=== PATIENT | female | born 1980 | race Two or more races ===

== ENCOUNTER 2018-11-11 05:26 | Inpatient (IN) | payer MEDICAID ==
[2018-11-11] MEDS ORDERED: Sodium Chloride 0.9% 10 ML SDV IV PRN (05:42)
[2018-11-11] MEDS ORDERED: ceFAZolin 2 GM in Premix Bag 1 BAG IV ONE (05:42)
[2018-11-11] MEDS ORDERED: Sodium Chloride 0.9% 2.5 ML Syringe FLUSH PRN (05:42)
[2018-11-11] MEDS ORDERED: Sodium Chloride 0.9% 10 ML Syringe FLUSH PRN (05:42)
[2018-11-11] MEDS ORDERED: Citric Acid/Sodium Citrate Solution 30 ML Cup PO ONE (05:42)
[2018-11-11] MEDS ORDERED: Oxytocin/0.9 % Sodium Chloride 30 UNIT/500 ML BAG IV SCH (05:45)
[2018-11-11] MEDS: Lactated Ringers 1,000 ML IV SCH ×2 (06:05→07:48)
[2018-11-11] MEDS ORDERED: diphenhydrAMINE 50 MG/ML SDV IVPUSH PRN ×2 (07:14→09:02)
[2018-11-11] MEDS ORDERED: Naloxone 0.4 MG/ML Syringe IVPUSH PRN (07:14)
[2018-11-11] MEDS ORDERED: Nalbuphine 10 MG/1 ML Vial IVPUSH PRN (07:14)
[2018-11-11] MEDS ORDERED: EPINEPHrine 1 MG/ML SDV ONE (07:36)
[2018-11-11] MEDS ORDERED: Morphine PF 10 MG/10 ML SDV ONE (07:36)
[2018-11-11] MEDS ORDERED: Scopolamine 1.5 MG Transdermal Patch ONE (07:36)
[2018-11-11] MEDS ORDERED: ceFAZolin 1 GM Vial ONE (07:36)
--- NOTE | 2018-11-11 07:43 | PCM.PREANE ---
Preanesthetic Assessment - Anesthesia/Transfusion/Family Hx Type of Anesthesia Reaction: Excessive Nausea/Vomiting Family History of Anesthesia Reaction: No Transfusion History: No Prior Transfusion(s) - Review of Systems General: No Symptoms Pulmonary: Shortness of Breath (occasionally, does not interfere with quality of life) Cardiovascular: No Symptoms Gastrointestinal: No Symptoms Neurological: No Symptoms Other: Reports: None - Physical Assessment NPO Status Time: 07:41 (bicitra) Height: 1.68 m Weight: 97.069 kg ASA Class: 2 Mental Status: Alert & Oriented x3 Airway Class: Mallampati = 2 Dentition: Reports: Normal Dentition Thyro-Mental Finger Breadths: 3 Mouth Opening Finger Breadths: 3 ROM/Head Extension: Full Lungs: Clear to Auscultation, Normal Respiratory Effort Cardiovascular: Regular Rate, Regular Rhythm - Lab Values: Laboratory Last Values WBC 9.92 K/uL (4.0-11.0) 11/11/18 06:05 RBC 4.65 M/uL (4.30-5.90) 11/11/18 06:05 Hgb 12.6 g/dL (12.0-16.0) 11/11/18 06:05 Hct 37.9 % (36.0-46.0) 11/11/18 06:05 MCV 81.5 fL (80.0-98.0) 11/11/18 06:05 MCH 27.1 pg (27.0-32.0) 11/11/18 06:05 MCHC 33.2 g/dL (31.0-37.0) 11/11/18 06:05 RDW Std Deviation 42.8 fl (28.0-62.0) 11/11/18 06:05 RDW Coeff of Mildred 14 % (11.0-15.0) 11/11/18 06:05 Plt Count 169 K/uL (150-400) 11/11/18 06:05 MPV 13.20 fL (7.40-12.00) H 11/11/18 06:05 Nucleated RBC % 0.0 /100WBC 11/11/18 06:05 Nucleated RBCs # 0 K/uL 11/11/18 06:05 Blood Type A POSITIVE 11/11/18 06:05 Antibody Screen NEGATIVE 11/11/18 06:05 - Allergies Allergies/Adverse Reactions: Allergies Allergy/AdvReac Type Severity Reaction Status Date / Time No Known Allergies Allergy Verified 11/05/18 07:52 - Anesthesia Plan Pre-Op Medication Ordered: Antacids (bicitra), Other (scopolamine) - Acknowledgements Anesthesia Type Planned: Spinal Pt an Appropriate Candidate for the Planned Anesthesia: Yes Alternatives and Risks of Anesthesia Discussed w Pt/Guardian: Yes Pt/Guardian Understands and Agrees with Anesthesia Plan: Yes PreAnesthesia Questionnaire HEENT History: Reports: Other (See Below) Other HEENT History: wears glasses Cardiovascular History: Reports: None Respiratory History: Reports: SOB (see review of systems comments) Gastrointestinal History: Reports: Other (See Below) Other Gastrointestinal History: occasional heartburn during Genitourinary History: Reports: None ETL TESTER History: Reports: Musculoskeletal History: Reports: Back Pain, Chronic (sees a chiropracter, preop pain score "3-4/10") Neurological History: Reports: None Psychiatric History: Reports: Anxiety Endocrine/Metabolic History: Reports: Obesity/BMI 30+ Hematologic History: Reports: None Immunologic History: Reports: None Oncologic (Cancer) History: Reports: None Dermatologic History: Reports: None - Past Surgical History Head Surgeries/Procedures: Reports: None HEENT Surgical History: Reports: None Cardiovascular Surgical History: Reports: None Respiratory Surgical History: Reports: None GI Surgical History: Reports: None Female Surgical History: Reports: Section Other Female Surgeries/Procedures: c/section x3 Endocrine Surgical History: Reports: None Neurological Surgical History: Reports: None Musculoskeletal Surgical History: Reports: None Oncologic Surgical History: Reports: None Dermatological Surgical History: Reports: None - SUBSTANCE USE Smoking Status *Q: Former Smoker Days Per Week of Alcohol Use: 0 Recreational Drug Use History: No - HOME MEDS Home Medications: Home Meds PNV95/Ferrous Fumarate/FA [ Tablet] 1 tab PO DAILY 04/20/16 [History] Calcium Carb & Citrate/Vit D3 [Calcium + D3 ER Tablet] 1 tab PO DAILY 11/05/18 [ History] Lactobacillus Acidophilus [Probiotic] 1 tab PO DAILY 11/05/18 [History] - CURRENT (IN HOUSE) MEDS Current Meds: Current Medications Diphenhydramine HCl (Benadryl) 25 mg IVPUSH Q4H PRN PRN Reason: Itching Stop: 11/12/18 07:15 Lactated Ringer's (Ringers, Lactated) 1,000 mls @ 500 mls/hr IV BOLUS [facility] Last Admin: 11/11/18 06:05 Dose: 500 mls/hr Oxytocin/Sodium Chloride (Oxytocin 30 Unit/500 Ml-Ns) 30 unit in 500 mls @ 250 mls/hr IV TITRATE [facility] Nalbuphine HCl (Nubain) 2.5 mg IVPUSH Q3H PRN PRN Reason: Pruritis Stop: 11/12/18 07:15 Naloxone HCl (Narcan) 0.1 mg IVPUSH ONETIME PRN PRN Reason: Respiratory Depression Stop: 11/12/18 07:15 Sodium Chloride (Saline Flush) 10 ml FLUSH ASDIRECTED PRN PRN Reason: Keep Vein Open Sodium Chloride (Saline Flush) 2.5 ml FLUSH ASDIRECTED PRN PRN Reason: Keep Vein Open Sodium Chloride (Normal Saline) 10 ml IV ASDIRECTED PRN PRN Reason: IV Use Discontinued Medications Cefazolin Sodium (Ancef) Confirm Administered Dose 2 gm .ROUTE .STK-MED ONE Stop: 11/11/18 07:37 Citric Acid/Sodium Citrate (Bicitra Solution) 30 ml PO ONETIME ONE Stop: 11/11/18 05:43 Last Admin: 11/11/18 07:39 Dose: 30 ml Epinephrine HCl (Adrenalin) Confirm Administered Dose 1 mg .ROUTE .STK-MED ONE Stop: 11/11/18 07:37 Cefazolin Sodium/Dextrose 2 gm (/ Premix) 50 mls @ 100 mls/hr IV ONETIME ONE Stop: 11/11/18 06:11 Morphine Sulfate (Duramorph Pf) Confirm Administered Dose 10 mg .ROUTE .STK-MED ONE Stop: 11/11/18 07:37 Scopolamine (Transderm-Scop) Confirm Administered Dose 1.5 mg .ROUTE .STK-MED ONE Stop: 11/11/18 07:37
[2018-11-11] MEDS ORDERED: Oxytocin 10 Units/1 ML SDV ONE (08:22)
[2018-11-11] MEDS ORDERED: ePHEDrine 50 MG/ML SDV ONE (08:22)
[2018-11-11] MEDS ORDERED: Ketorolac 30 MG/ML SDV ONE (08:38)
[2018-11-11] MEDS ORDERED: Octyl 2-Cyanoacrylate 1 Tube ONE (08:49)
[2018-11-11] MEDS ORDERED: Ondansetron 4 MG/2 ML SDV ONE (08:49)
[2018-11-11] MEDS ORDERED: Bisacodyl 10 MG Supp RECTAL PRN (09:02)
[2018-11-11] MEDS ORDERED: Ondansetron 4 MG/2 ML SDV IVPUSH PRN (09:02)
[2018-11-11] MEDS ORDERED: Lanolin 100% Cream 7 GM Tube TOP PRN (09:02)
[2018-11-11] MEDS ORDERED: Acetaminophen/oxyCODONE 325-5 MG Tab PO PRN (09:02)
[2018-11-11] MEDS ORDERED: Aluminum Hydroxide/Magnesium Hydroxide/Simethicone Susp 30 ML Cup PO PRN (09:02)
--- NOTE | 2018-11-11 09:12 | PCM.OPNOTE ---
- General Post-Op/Procedure Note Date of Surgery/Procedure: 11/11/18 Operative Procedure(s): Repeat LTCS Findings: Viable female APGARs 9, 10 weight 7 lb 11 oz. Delivery intact placenta with 3 V cord. Thin lower uterine segment. Dense abdominal wall adhesions Pre Op Diagnosis: 39 week IUP. Previous c section, desires repeat Post-Op Diagnosis: Same Anesthesia Technique: Spinal Primary Surgeon: Nga Zaman Humid System Operator: Kathleen Peña Fluid Replacement, Intraop: 1,200 EBL in mLs: 900 Complications: none known Condition: Stable Free Text/Narrative:: Intake & Output 11/10/18 11/11/18 11/11/18 22:59 06:59 14:59 Intake Total 1000 Balance 1000 Dictation [id number]
[2018-11-11] MEDS ORDERED: Lactated Ringers 1,000 ML IV SCH (09:15)
--- NOTE | 2018-11-11 11:40 | PCM.POSTAN ---
POST ANESTHESIA ASSESSMENT - MENTAL STATUS Mental Status: Alert, Oriented - RESPIRATORY Respiratory Status: Respiratory Rate WNL, Airway Patent, O2 Saturation Stable - CARDIOVASCULAR CV Status: Pulse Rate WNL, Blood Pressure Stable - GASTROINTESTINAL GI Status: No Symptoms - POST OP HYDRATION Hydration Status: Adequate & Stable
--- NOTE | 2018-11-11 13:51 | OR ---
SURGEON: Nga Zaman M.D. DATE OF PROCEDURE: 11/11/2018 PREOPERATIVE DIAGNOSES: 1. 39 weeks' intrauterine . 2. Previous section, desires repeat. POSTOPERATIVE DIAGNOSES: 1. 39 weeks' intrauterine . 2. Previous section, desires repeat. PROCEDURE: Repeat low-transverse section. PRIMARY SURGEON: Nga Zaman MD. FUR SCRAPER: Kathleen Peña MD. ANESTHESIA: Spinal. ESTIMATED BLOOD LOSS: 900 mL. FLUIDS: 1200 mL of crystalloid. COMPLICATIONS: None known. FINDINGS: Viable female. scores 9 at 1 minute, 10 at 5 minutes. Weight of 7 pounds 11 ounces. Delivery of intact placenta, 3-vessel cord. A thin lower uterine segment noted. Dense abdominal wall adhesions. DISPOSITION: The patient to PACU, infant to nursery, stable. PROCEDURE DETAILS: Susan is a 38-year-old G5, P4, at 39 weeks' gestational age today, who presents for scheduled repeat delivery. Risks of the procedure have been discussed with her. Proper consent obtain. Pictures were taken to explain to her that this is going to be her 5th delivery and her last delivery by virtue of op note had quite a lot of adhesions, and we should expect the same today. Therefore, the procedure time may take longer than usual and the risk for potential injury to surrounding organs is higher. She voiced her understanding. Risks of the procedure have been discussed with her once again and proper consent obtained. The patient was taken to the operating room where she underwent spinal anesthetic, was then placed in the dorsal supine position with leftward tilt. SCDs to lower extremities. Ceballos to gravity. Was prepped and draped in usual sterile fashion. A time-out was performed. After being prepped and draped in usual sterile fashion, anesthesia was tested, found to be adequate. Previous Pfannenstiel scar was now excised. Subcutaneous tissue was incised down the level of the rectus fascia, which was incised in midline and lateralized on either side sharply. The rectus fascia was quite dense from previous scarring without a lot of mobility. The superior aspect of the fascia was now grasped with Toni clamps on either side and dissected sharply and bluntly away from underlying muscle. Similar aspect was performed with the inferior aspect of the fascia. Rectus muscles now gently in midline sharply. Peritoneum was gently dissected bluntly and tented up with hemostats and entered sharply with Metzenbaum scissors. The rectus muscles and peritoneum were now lateralized bluntly. A region of tightness along the right lateral aspect was further dissected with Christianson scissors in order to allow more mobility. At this juncture, uterovesical adhesions were noted. However, I am able to find a plane in order to enter the abdominal cavity. Therefore, position and uterine position palpated and self-retaining retractor was able to be gently placed. Uterovesical adhesions were now lysed sharply and a bladder flap was created. Bladder was mobilized away from lower uterine segment. The lower uterine segment was very thin. The peritoneal window identified. Therefore, a low transverse hysterotomy was performed in this region and entered with blunt end of scalpel. Hysterotomy was lateralized bluntly. Amniotomy was performed. Clear fluid was returned. Infant's head was flexed. Fundal pressure was applied. The head does deliver, but the region was quite tight creating a lot of fundal pressure in order to allow delivery of the head and shoulders, but this was able to be performed. The 's oropharynx and nares bulb suctioned. Cord was clamped x2 and cut. was handed off to attending nursing staff. Cord arterial, cord venous, cord blood sampling obtained. The placenta was now delivered. Uterine cavity was cleared of all clot and debris. Hysterotomy was repaired using 0 Vicryl in continuous running locked fashion followed by a re-imbricating layer. Areas of serosal oozing were now cauterized. The pelvis was now copiously irrigated, suction dried. Hysterotomy was again inspected and found to be hemostatic. Self-retaining retractor now gently removed. Bladder blade and Rich were now placed. The hysterotomy was again inspected and overall found to be hemostatic. The bladder blade and Rich were now removed rectus fascia. The rectus muscle and peritoneum were now reapproximated using 0 Vicryl with inverted mattress suture technique. Anterior aspect of the muscle, posterior aspect of the fascia closely inspected, any areas of oozing were cauterized. The rectus fascia was reapproximated using 0 Vicryl in continuous running fashion beginning laterally on either side and meeting in the midline. Subcutaneous tissue was well irrigated and suction dried, any areas of oozing were cauterized. There was an area of arterial bleeding along the left lateral aspect, which was grasped with hemostats on either side and cauterized. Hemostasis appeared evident. Region was once again copiously irrigated. Deeper subcutaneous tissue was reapproximated with 3-0 plain gut in a continuous running fashion. The skin edges were reapproximated using 3-0 Vicryl on a Blaine needle in subcuticular fashion followed by Dermabond. Uterus was vigorously massaged and remained firm. Sponge, instrument, and needle count was correct x2. The patient has tolerated the procedure well overall, and she will go to PACU in stable condition, infant to nursery. GERALDO / CHANTEL /[id number]
[2018-11-11] MEDS: Simethicone 80 MG Tab.Chew PO SCH ×2 (14:22→18:06)
[2018-11-11] MEDS: Ketorolac 30 MG/ML SDV IVPUSH SCH ×3 (14:23→21:30)
[2018-11-11] MEDS: Docusate Sodium 100 MG Cap PO SCH (21:30)
[2018-11-12] MEDS: Ketorolac 30 MG/ML SDV IVPUSH SCH ×2 (03:39→09:34)
[2018-11-12] MEDS: Simethicone 80 MG Tab.Chew PO SCH ×4 (06:27→19:38)
--- NOTE | 2018-11-12 06:33 | PCM48HPAN ---
Post Anesthesia Note - EVALUATION WITHIN 48HRS OF ANESTHETIC Vital Signs in Normal Range: Yes Patient Participated in Evaluation: Yes Respiratory Function Stable: Yes Airway Patent: Yes Cardiovascular Function Stable: Yes Hydration Status Stable: Yes Pain Control Satisfactory: Yes Nausea and Vomiting Control Satisfactory: Yes Mental Status Recovered: Yes Resp Rate: 14 - COMMENTS/OBSERVATIONS Free Text/Narrative:: The patient has no complaints at this time, and she would like to discontinue the scopolamine patch. The scopolamine patch can be discontinued. There were no apparent anesthetic complications.
[2018-11-12] MEDS: Docusate Sodium 100 MG Cap PO SCH (09:33)
[2018-11-12] MEDS: Acetaminophen/oxyCODONE 325-5 MG Tab PO PRN ×3 (12:12→22:55)
--- NOTE | 2018-11-12 13:02 | PCM.PNPP ---
- General Info Date of Service: 11/12/18 Functional Status: Reports: Pain Controlled, Tolerating Diet, Ambulating, Urinating - Review of Systems General: Reports: Fatigue. Denies: Fever, Weakness Pulmonary: Denies: Shortness of Breath Cardiovascular: Denies: Chest Pain, Palpitations, Lightheadedness Gastrointestinal: Reports: Abdominal Pain (incisional pain, controlled overall) . Denies: Nausea, Vomiting Genitourinary: Denies: Flank Pain Skin: Reports: No Symptoms Neurological: Reports: No Symptoms Psychiatric: Reports: No Symptoms - General Info Date of Service: 11/12/18 - Patient Data Vital Signs - Most Recent: Last Vital Signs Temp 36.2 C 11/12/18 07:20 Pulse 67 11/12/18 07:20 Resp 18 11/12/18 07:20 BP 118/59 L 11/12/18 07:20 Pulse Ox 98 11/12/18 07:20 Weight - Most Recent: 97.069 kg I&O - Last 24 Hours: Intake & Output 11/11/18 11/12/18 11/12/18 22:59 06:59 14:59 Intake Total 700 Output Total 1100 2900 Balance -400 -2900 Lab Results - Last 24 Hours: Laboratory Results - last 24 hr 11/12/18 Range/Units 05:40 Hgb 11.7 L (12.0-16.0) g/dL Hct 35.8 L (36.0-46.0) % Med Orders - Current: Current Medications Al Hydroxide/Mg Hydroxide (Mag-Al Plus) 30 ml PO Q8H PRN PRN Reason: Heartburn Bisacodyl (Dulcolax) 10 mg RECTAL ONETIME PRN PRN Reason: Constipation Diphenhydramine HCl (Benadryl) 25 mg IVPUSH Q6H PRN PRN Reason: Itching or Nausea Docusate Sodium (Colace) 100 mg PO BID [facility] Last Admin: 11/12/18 09:33 Dose: 100 mg Emollient Ointment (Lansinoh Hpa) 0 gm TOP ASDIRECTED PRN PRN Reason: Sore Nipples Last Admin: 11/11/18 14:30 Dose: 1 tube Lactated Ringer's (Ringers, Lactated) 1,000 mls @ 500 mls/hr IV BOLUS ETELVINA Last Admin: 11/11/18 07:48 Dose: 500 mls/hr Oxytocin/Sodium Chloride (Oxytocin 30 Unit/500 Ml-Ns) 30 unit in 500 mls @ 250 mls/hr IV TITRATE [facility] Lactated Ringer's (Ringers, Lactated) 1,000 mls @ 125 mls/hr IV ASDIRECTED [facility] Ibuprofen (Motrin) 800 mg PO Q8H PRN PRN Reason: mild pain or fever Ondansetron HCl (Zofran) 4 mg IVPUSH Q4H PRN PRN Reason: Nausea/Vomiting Oxycodone/Acetaminophen (Percocet 325-5 Mg) 1 tab PO Q4H PRN PRN Reason: Pain (moderate 4-6) Oxycodone/Acetaminophen (Percocet 325-5 Mg) 2 tab PO Q4H PRN PRN Reason: Pain (moderate 4-6) Last Admin: 11/12/18 12:12 Dose: 2 tab Simethicone (Simethicone) 160 mg PO QID [facility] Last Admin: 11/12/18 12:13 Dose: 160 mg Sodium Chloride (Saline Flush) 10 ml FLUSH ASDIRECTED PRN PRN Reason: Keep Vein Open Sodium Chloride (Saline Flush) 2.5 ml FLUSH ASDIRECTED PRN PRN Reason: Keep Vein Open Sodium Chloride (Normal Saline) 10 ml IV ASDIRECTED PRN PRN Reason: IV Use Discontinued Medications Cefazolin Sodium (Ancef) Confirm Administered Dose 2 gm .ROUTE .STK-MED ONE Stop: 11/11/18 07:37 Citric Acid/Sodium Citrate (Bicitra Solution) 30 ml PO ONETIME ONE Stop: 11/11/18 05:43 Last Admin: 11/11/18 07:39 Dose: 30 ml Diphenhydramine HCl (Benadryl) 25 mg IVPUSH Q4H PRN PRN Reason: Itching Stop: 11/12/18 07:15 Ephedrine Sulfate (Ephedrine Sulfate) Confirm Administered Dose 50 mg .ROUTE .STK-MED ONE Stop: 11/11/18 08:23 Epinephrine HCl (Adrenalin) Confirm Administered Dose 1 mg .ROUTE .STK-MED ONE Stop: 11/11/18 07:37 Cefazolin Sodium/Dextrose 2 gm (/ Premix) 50 mls @ 100 mls/hr IV ONETIME ONE Stop: 11/11/18 06:11 Ketorolac Tromethamine (Toradol) Confirm Administered Dose 30 mg .ROUTE .STK- MED ONE Stop: 11/11/18 08:39 Ketorolac Tromethamine (Toradol) 30 mg IVPUSH Q6H [facility] Stop: 11/12/18 09:16 Last Admin: 11/12/18 09:34 Dose: 30 mg Morphine Sulfate (Duramorph Pf) Confirm Administered Dose 10 mg .ROUTE .STK-MED ONE Stop: 11/11/18 07:37 Nalbuphine HCl (Nubain) 2.5 mg IVPUSH Q3H PRN PRN Reason: Pruritis Stop: 11/12/18 07:15 Last Admin: 11/11/18 10:19 Dose: 2.5 mg Naloxone HCl (Narcan) 0.1 mg IVPUSH ONETIME PRN PRN Reason: Respiratory Depression Stop: 11/12/18 07:15 Octyl Cyanoacrylate (Dermabond Advance) Confirm Administered Dose 1 applic .ROUTE .STK-MED ONE Stop: 11/11/18 08:50 Ondansetron HCl (Zofran) Confirm Administered Dose 4 mg .ROUTE .STK-MED ONE Stop: 11/11/18 08:50 Oxytocin (Pitocin) Confirm Administered Dose 20 unit .ROUTE .STK-MED ONE Stop: 11/11/18 08:23 Scopolamine (Transderm-Scop) Confirm Administered Dose 1.5 mg .ROUTE .STK-MED ONE Stop: 11/11/18 07:37 - Interaction Support Person: Significant Other - Recovery Exam Fundal Tone: Firm Fundal Level: 1 Fingerbreadths Below Umbilicus Fundal Placement: Midline Lochia Amount: Scant Lochia Color: Rubra/Red Perineum Description: Intact, Minimal Bruising/Swelling Episiotomy/Laceration: None Bladder Status: Voiding Urinary Elimination: Voided - Exam General: Alert, Oriented Lungs: Normal Respiratory Effort Cardiovascular: Regular Rate, Regular Rhythm GI/Abdominal Exam: Normal Bowel Sounds, Soft Extremities: Pedal Edema (trace). No: Nichole's Sign Skin: Warm, Dry, Intact Wound/Incisions: No Drainage. No: Erythema Neurological: No New Focal Deficit Psy/Mental Status: Alert, Normal Affect, Normal Mood - Problem List & Annotations (1) delivery delivered SNOMED Code(s): 766288729 Code(s): O82 - ENCOUNTER FOR DELIVERY WITHOUT INDICATION Status: Acute Current Visit: No - Problem List Review Problem List Initiated/Reviewed/Updated: Yes - My Orders Last 24 Hours: My Active Orders 11/11/18 21:00 Docusate Sodium [Colace] 100 mg PO BID 11/11/18 Dinner Regular Diet [DIET] - Assessment Assessment:: POD 1 status post repeat c section - Plan Plan:: Continue postoperative cares.
[2018-11-13] MEDS: Docusate Sodium 100 MG Cap PO SCH ×2 (00:03→08:06)
[2018-11-13] MEDS: Simethicone 80 MG Tab.Chew PO SCH ×3 (00:03→08:04)
[2018-11-13] MEDS: Ibuprofen 800 MG Tab PO PRN ×2 (00:08→08:07)
[2018-11-13] MEDS: Acetaminophen/oxyCODONE 325-5 MG Tab PO PRN ×2 (06:21→12:52)
[2018-11-13 07:56] VITALS: BP 124/71
--- NOTE | 2018-11-13 08:56 | PCM.PNPP ---
- General Info Date of Service: 11/13/18 Functional Status: Reports: Pain Controlled, Tolerating Diet, Ambulating, Urinating - Review of Systems General: Reports: Fatigue. Denies: Fever, Weakness Pulmonary: Denies: Shortness of Breath Cardiovascular: Denies: Chest Pain, Palpitations, Lightheadedness Gastrointestinal: Reports: Abdominal Pain (incisional, pain meds help control). Denies: Nausea, Vomiting Genitourinary: Denies: Flank Pain Musculoskeletal: Reports: No Symptoms Skin: Reports: No Symptoms Neurological: Reports: No Symptoms Psychiatric: Reports: No Symptoms - General Info Date of Service: 11/13/18 - Patient Data Vital Signs - Most Recent: Last Vital Signs Temp 36.5 C 11/13/18 07:25 Pulse 71 11/13/18 07:25 Resp 18 11/13/18 07:25 BP 124/71 11/13/18 07:25 Pulse Ox 96 11/13/18 07:25 Weight - Most Recent: 97.069 kg Med Orders - Current: Current Medications Al Hydroxide/Mg Hydroxide (Mag-Al Plus) 30 ml PO Q8H PRN PRN Reason: Heartburn Bisacodyl (Dulcolax) 10 mg RECTAL ONETIME PRN PRN Reason: Constipation Diphenhydramine HCl (Benadryl) 25 mg IVPUSH Q6H PRN PRN Reason: Itching or Nausea Docusate Sodium (Colace) 100 mg PO BID [facility] Last Admin: 11/13/18 08:06 Dose: 100 mg Emollient Ointment (Lansinoh Hpa) 0 gm TOP ASDIRECTED PRN PRN Reason: Sore Nipples Last Admin: 11/11/18 14:30 Dose: 1 tube Lactated Ringer's (Ringers, Lactated) 1,000 mls @ 500 mls/hr IV BOLUS [facility] Last Admin: 11/11/18 07:48 Dose: 500 mls/hr Oxytocin/Sodium Chloride (Oxytocin 30 Unit/500 Ml-Ns) 30 unit in 500 mls @ 250 mls/hr IV TITRATE [facility] Lactated Ringer's (Ringers, Lactated) 1,000 mls @ 125 mls/hr IV ASDIRECTED [facility] Ibuprofen (Motrin) 800 mg PO Q8H PRN PRN Reason: mild pain or fever Last Admin: 11/13/18 08:07 Dose: 800 mg Ondansetron HCl (Zofran) 4 mg IVPUSH Q4H PRN PRN Reason: Nausea/Vomiting Oxycodone/Acetaminophen (Percocet 325-5 Mg) 1 tab PO Q4H PRN PRN Reason: Pain (moderate 4-6) Oxycodone/Acetaminophen (Percocet 325-5 Mg) 2 tab PO Q4H PRN PRN Reason: Pain (moderate 4-6) Last Admin: 11/13/18 06:21 Dose: 2 tab Simethicone (Simethicone) 160 mg PO QID [facility] Last Admin: 11/13/18 08:04 Dose: 160 mg Sodium Chloride (Saline Flush) 10 ml FLUSH ASDIRECTED PRN PRN Reason: Keep Vein Open Sodium Chloride (Saline Flush) 2.5 ml FLUSH ASDIRECTED PRN PRN Reason: Keep Vein Open Sodium Chloride (Normal Saline) 10 ml IV ASDIRECTED PRN PRN Reason: IV Use Discontinued Medications Cefazolin Sodium (Ancef) Confirm Administered Dose 2 gm .ROUTE .STK-MED ONE Stop: 11/11/18 07:37 Citric Acid/Sodium Citrate (Bicitra Solution) 30 ml PO ONETIME ONE Stop: 11/11/18 05:43 Last Admin: 11/11/18 07:39 Dose: 30 ml Diphenhydramine HCl (Benadryl) 25 mg IVPUSH Q4H PRN PRN Reason: Itching Stop: 11/12/18 07:15 Ephedrine Sulfate (Ephedrine Sulfate) Confirm Administered Dose 50 mg .ROUTE .STK-MED ONE Stop: 11/11/18 08:23 Epinephrine HCl (Adrenalin) Confirm Administered Dose 1 mg .ROUTE .STK-MED ONE Stop: 11/11/18 07:37 Cefazolin Sodium/Dextrose 2 gm (/ Premix) 50 mls @ 100 mls/hr IV ONETIME ONE Stop: 11/11/18 06:11 Ketorolac Tromethamine (Toradol) Confirm Administered Dose 30 mg .ROUTE .STK- MED ONE Stop: 11/11/18 08:39 Ketorolac Tromethamine (Toradol) 30 mg IVPUSH Q6H [facility] Stop: 11/12/18 09:16 Last Admin: 11/12/18 09:34 Dose: 30 mg Morphine Sulfate (Duramorph Pf) Confirm Administered Dose 10 mg .ROUTE .STK-MED ONE Stop: 11/11/18 07:37 Nalbuphine HCl (Nubain) 2.5 mg IVPUSH Q3H PRN PRN Reason: Pruritis Stop: 11/12/18 07:15 Last Admin: 11/11/18 10:19 Dose: 2.5 mg Naloxone HCl (Narcan) 0.1 mg IVPUSH ONETIME PRN PRN Reason: Respiratory Depression Stop: 11/12/18 07:15 Octyl Cyanoacrylate (Dermabond Advance) Confirm Administered Dose 1 applic .ROUTE .STK-MED ONE Stop: 11/11/18 08:50 Ondansetron HCl (Zofran) Confirm Administered Dose 4 mg .ROUTE .STK-MED ONE Stop: 11/11/18 08:50 Oxytocin (Pitocin) Confirm Administered Dose 20 unit .ROUTE .STK-MED ONE Stop: 11/11/18 08:23 Scopolamine (Transderm-Scop) Confirm Administered Dose 1.5 mg .ROUTE .STK-MED ONE Stop: 11/11/18 07:37 - Infant Interaction Support Person: Significant Other - Recovery Exam Fundal Tone: Firm Fundal Level: 2 Fingerbreadths Below Umbilicus Fundal Placement: Midline Lochia Amount: None Lochia Color: Rubra/Red Perineum Description: Intact, Minimal Bruising/Swelling Episiotomy/Laceration: None Bladder Status: Voiding Urinary Elimination: Voided - Exam General: Alert, Oriented Lungs: Normal Respiratory Effort Cardiovascular: Regular Rate, Regular Rhythm GI/Abdominal Exam: Normal Bowel Sounds, Soft, No Distention, Tender (near incision, appropriate) Extremities: Pedal Edema (trace). No: Nichole's Sign Skin: Warm, Dry, Intact Wound/Incisions: Healing Well, No Drainage. No: Erythema Neurological: No New Focal Deficit Psy/Mental Status: Alert, Normal Affect, Normal Mood - Problem List & Annotations (1) delivery delivered SNOMED Code(s): 932421130 Code(s): O82 - ENCOUNTER FOR DELIVERY WITHOUT INDICATION Status: Acute Current Visit: No - Problem List Review Problem List Initiated/Reviewed/Updated: Yes - My Orders Last 24 Hours: My Active Orders 11/13/18 08:53 Ready for Discharge [RC] PER UNIT ROUTINE - Assessment Assessment:: POD 2 status post repeat c section - Plan Plan:: VS are stable, labs are reassuring. Patient is ready to go home today. Discharge instructions reviewed. Infection and bleeding warnings reviewed. Follow up at [facility] 2 and 6 weeks. Rx for percocet [facility]. Discharge to home today.
== END 2018-11-13 13:13 | disposition home or self-care (01) | DRG 788 ==
LOC: MW.OB 05:26
PROVIDERS: ADMIT Obstetrics & Gynecology; ATTEND Obstetrics & Gynecology
PROC: 10D00Z1 Extraction of Products of Conception, Low, Open Approach (ICD-10-PCS; principal; 2018-11-11)
DX: O34.211 Maternal care for low transverse scar from previous cesarean delivery (principal); O99.214 Obesity complicating childbirth; E66.9 Obesity, unspecified; Z3A.39 39 weeks gestation of pregnancy; Z37.0 Single live birth
CPT/HCPCS: 36415; 59025; 82803; 85014; 85018; 85027; 86850; 86900; 86901; A9270-GY; J0171; J0690; J1885; J2270; J2300; J2405; J2590; J7120